=== PATIENT | female | born 1950 | race Caucasian/White ===

== ENCOUNTER 2018-04-21 07:27 | Emergency (ER) | payer OTHER ==
[~2018-04-21] VITALS: Ht 170.2 cm; Wt 81.6 kg
[2018-04-21] MEDS ORDERED: SYNTHROID75 MCG (07:45)
[2018-04-21] MEDS ORDERED: LIPITOR20 MG PO (07:46)
[2018-04-21] MEDS ORDERED: PLAVIX75 MG (07:46)
[2018-04-21] MEDS ORDERED: ALLEGRA ALLERG180 MG (07:46)
[2018-04-21] MEDS ORDERED: VIT C-ROSE HIP500 MG (07:47)
[2018-04-21] MEDS ORDERED: CEREFOLIN CAPL1 EACH (07:47)
[2018-04-21] MEDS ORDERED: FOLIC ACID20 MG (07:48)
[2018-04-21] MEDS ORDERED: ZITHROMAX500 MG (07:49)
== END 2018-04-21 09:09 | disposition home or self-care (01) ==
LOC: ER 07:27
DX: J45.998 Other asthma (principal)

== ENCOUNTER 2018-06-17 07:54 | Outpatient (CLI) | payer OTHER ==
[~2018-06-17 07:54] MED LIST: ALLEGRA ALLERG180 MG; CEREFOLIN CAPL1 EACH; FOLIC ACID20 MG; LIPITOR20 MG PO; PLAVIX75 MG; SYNTHROID75 MCG; VIT C-ROSE HIP500 MG; ZITHROMAX500 MG
== END 2018-06-17 08:00 | disposition home or self-care (01) ==
LOC: SONOGRAMA 07:54
DX: M12.9 Arthropathy, unspecified (principal); M19.90 Unspecified osteoarthritis, unspecified site

== ENCOUNTER 2018-07-17 07:21 | Outpatient (CLI) | payer OTHER | END 2018-07-17 07:27 | disposition home or self-care (01) | LOC: LAB 07:21 | DX: E78.2 Mixed hyperlipidemia (principal); N39.0 Urinary tract infection, site not specified; R07.89 Other chest pain; Z01.818 Encounter for other preprocedural examination; I10 Essential (primary) hypertension; D68.8 Other specified coagulation defects ==

== ENCOUNTER 2022-05-01 07:06 | Outpatient (CLI) | payer OTHER | END 2022-05-01 07:08 | disposition home or self-care (01) | LOC: NUCLEAR 07:06 | PROVIDERS: ATTEND Internal Medicine Cardiovascular Disease | DX: I20.9 Angina pectoris, unspecified (principal); Z91.041 Radiographic dye allergy status; Z88.8 Allergy status to other drugs, medicaments and biological substances | CPT/HCPCS: 78452; 93017; A9500; J0153 ==